=== PATIENT | female | born 1990 | race Hispanic/Latino ===

== ENCOUNTER 2019-03-10 21:03 | Emergency (ER) | payer MEDICAID ==
[2019-03-10] MEDS ORDERED: SODIUM CHLORIDE 0.9% 1000ML 2,000 ML IV ONE (22:01)
[2019-03-10] MEDS ORDERED: ONDANSETRON HCL 4 MG/2 ML VIAL ONE (22:01)
[2019-03-10 22:04] LABS: BASOPHILS % (AUTO) 0.2 % (0.0-5.0); EOSINOPHILS % (AUTO) 0.3 % (0.0-8.0); HEMATOCRIT 33.1 % (36-48); LYMPHOCYTES % (AUTO) 9.1 % (21.0-51.0); MEAN CORPUSCULAR HEMOGLOBIN 29.7 pg (27.0-33.0); MEAN CORPUSCULAR HGB CONC 34.4 g/dL (32.0-36.0); MEAN CORPUSCULAR VOLUME 86.4 fL (79-99); MONOCYTES % (AUTO) 3.3 % (3.0-13.0); NEUTROPHILS % (AUTO) 87.1 % (40.0-77.0); NUCLEATED RED BLOOD CELLS 0.1 % (0.0-0.19); PLATELET COUNT (AUTO) 238 K/uL (130-400); RED BLOOD CELL COUNT(AUTO) 3.83 MIL/uL (4.00-5.50); RED CELL DISTRIBUTION WIDTH 13.5 % (11.0-15.5); WHITE BLOOD COUNT (AUTO) 7.1 K/uL (4.8-10.8)
[2019-03-10 22:09] LABS: APPEARANCE,URINE Cloudy (CLEAR); BILIRUBIN,URINE Negative (NEGATIVE); COLOR,URINE Yellow (YELLOW); GLUCOSE, URINE (UA) Negative (NEGATIVE); KETONES,URINE Negative (NEGATIVE); LEUKOCYTE ESTERASE ,URINE Moderate (NEGATIVE); NITRATE,URINE Negative (NEGATIVE); OCCULT BLOOD,URINE Negative (NEGATIVE); PROTEIN,URINE Negative (NEGATIVE)
[2019-03-10 22:16] LABS: CREATININE 0.6 mg/dL (0.5-1.5); POTASSIUM 3.4 mmol/L (3.5-5.1)
[2019-03-10 22:33] LABS: BACTERIA,URINE Few /HPF (None Seen); RBC,URINE 0-1 /HPF (0-1); YEAST,URINE BUDDING Few /HPF (None Seen)
[2019-03-10 22:36] LABS: RAPID GROUP A STREP NEGATIVE (NEGATIVE)
[2019-03-10 22:39] LABS: ALBUMIN 2.9 g/dL (3.5-5.0); BILIRUBIN,TOTAL 0.9 mg/dL (0.2-1.0); TOTAL PROTEIN, SERUM 6.4 g/dL (6.0-8.3)
[2019-03-10] MEDS ORDERED: CEFTRIAXONE SODIUM 1 GM ONE (22:49)
== END 2019-03-10 23:47 | disposition home or self-care (01) ==
LOC: EDH 21:03
DX: O21.0 Mild hyperemesis gravidarum (principal); O23.41 Unspecified infection of urinary tract in pregnancy, first trimester; F31.9 Bipolar disorder, unspecified; F20.9 Schizophrenia, unspecified; F41.9 Anxiety disorder, unspecified; Z3A.13 13 weeks gestation of pregnancy; Z88.5 Allergy status to narcotic agent; Z88.8 Allergy status to other drugs, medicaments and biological substances
CPT/HCPCS: 36415; 80053; 81001; 82150; 83690; 84702; 85025; 87804 ×2; 87880; 96361; 96374; 96375; 99285; J0696; J2405; J7030

== ENCOUNTER 2019-08-18 09:05 | Emergency (ER) | payer MEDICAID ==
[~2019-08-18 09:05] MED LIST: PREN-196 PO
[2019-08-18] MEDS ORDERED: ONDANSETRON HCL 4 MG/2 ML VIAL ONE (09:37)
[2019-08-18] MEDS ORDERED: SODIUM CHLORIDE 0.9% 1000ML 1,000 ML IV ONE (09:37)
[2019-08-18] MEDS ORDERED: ACETAMINOPHEN EXTRA STRENGTH 500 MG TABLET ONE (09:38)
[2019-08-18 09:48] LABS: BASOPHILS % (AUTO) 0.1 % (0.0-5.0); EOSINOPHILS % (AUTO) 0.7 % (0.0-8.0); HEMATOCRIT 38.4 % (36-48); LYMPHOCYTES % (AUTO) 6.4 % (21.0-51.0); MEAN CORPUSCULAR HEMOGLOBIN 27.5 pg (27.0-33.0); MEAN CORPUSCULAR HGB CONC 32.6 g/dL (32.0-36.0); MEAN CORPUSCULAR VOLUME 84.4 fL (79-99); MONOCYTES % (AUTO) 3.1 % (3.0-13.0); NEUTROPHILS % (AUTO) 89.2 % (40.0-77.0); PLATELET COUNT (AUTO) 272 K/uL (130-400); RED BLOOD CELL COUNT(AUTO) 4.55 MIL/uL (4.00-5.50); RED CELL DISTRIBUTION WIDTH 14.4 % (11.0-15.5); WHITE BLOOD COUNT (AUTO) 11.2 K/uL (4.8-10.8)
[2019-08-18 09:59] LABS: CARBON DIOXIDE 24 mmol/L (21-32); CHLORIDE 101 mmol/L (101-111); CREATININE 0.8 mg/dL (0.5-1.5); GLOMERULAR FILTR. RATE CALC 91 mL/min (>60); GLUCOSE,RANDOM 87 mg/dL (70-105); INR 1.01 (0.85-1.15); PARTIAL THROMBOPLASTIN TIME 29.4 SEC (26.3-35.5); POTASSIUM 3.4 mmol/L (3.5-5.1); PROTHROMBIN TIME 10.6 SEC (9.6-11.6); SODIUM SERUM 137 mmol/L (136-145); UREA NITROGEN, BLOOD 9 mg/dL (7-18)
[2019-08-18 10:14] LABS: ALANINE AMINOTRANSFERASE 20 U/L (12-78); ALBUMIN 3.2 g/dL (3.5-5.0); ASPARTATE AMINOTRANSFERASE 17 U/L (10-37); BILIRUBIN,TOTAL 0.9 mg/dL (0.2-1.0); CREATINE KINASE, TOTAL 46 U/L (21-232); MYOGLOBIN 26 ng/mL (10-92); TOTAL PROTEIN, SERUM 6.9 g/dL (6.0-8.3); TROPONIN I < 0.04 ng/mL (0.00-0.06)
[2019-08-18 10:42] LABS: APPEARANCE,URINE Clear (CLEAR); BILIRUBIN,URINE Negative (NEGATIVE); COLOR,URINE Yellow (YELLOW); GLUCOSE, URINE (UA) Negative (NEGATIVE); KETONES,URINE Trace mg/dL (NEGATIVE); LEUKOCYTE ESTERASE ,URINE Moderate (NEGATIVE); NITRATE,URINE Negative (NEGATIVE); OCCULT BLOOD,URINE Large (NEGATIVE); PROTEIN,URINE Trace mg/dL (NEGATIVE)
[2019-08-18 10:56] LABS: BACTERIA,URINE Few /HPF (None Seen); SQUAMOUS EPITHELIAL CELL,UR 0-2 /HPF (0-2)
[2019-08-18 10:57] LABS: MUCUS,URINE Few LPF (None Seen)
[2019-08-18] MEDS ORDERED: CEFTRIAXONE SODIUM 1 GM ONE (11:13)
== END 2019-08-18 11:46 | disposition home or self-care (01) ==
LOC: EDH 09:05
DX: N13.6 Pyonephrosis (principal); R50.9 Fever, unspecified; F41.9 Anxiety disorder, unspecified; F31.9 Bipolar disorder, unspecified; F20.9 Schizophrenia, unspecified; Z87.891 Personal history of nicotine dependence; Z88.8 Allergy status to other drugs, medicaments and biological substances; Z88.6 Allergy status to analgesic agent; Z88.2 Allergy status to sulfonamides
CPT/HCPCS: 36415; 71045; 80053; 81001; 82550; 83605; 83874; 84145; 84484; 85025; 85610; 85730; 87040 ×2; 87088; 87804 ×2; 93005; 96374; 96375; 99285; J0696; J2405; J7030

== ENCOUNTER 2019-09-11 14:56 | Emergency (ER) | payer MEDICAID, OTHER | END 2019-09-11 15:11 | disposition left against medical advice (07) | LOC: EDH 14:56 | DX: Z53.21 Procedure and treatment not carried out due to patient leaving prior to being seen by health care provider (principal); Z88.8 Allergy status to other drugs, medicaments and biological substances; Z88.6 Allergy status to analgesic agent; Z88.2 Allergy status to sulfonamides; F41.9 Anxiety disorder, unspecified; F32.9 Major depressive disorder, single episode, unspecified; F20.9 Schizophrenia, unspecified ==

== ENCOUNTER 2020-07-31 04:51 | Emergency (ER) | payer OTHER ==
[2020-07-31 05:54] LABS: APPEARANCE,URINE Turbid (CLEAR); BILIRUBIN,URINE Negative (NEGATIVE); COLOR,URINE Yellow (YELLOW); GLUCOSE, URINE (UA) Negative (NEGATIVE); KETONES,URINE Negative (NEGATIVE); LEUKOCYTE ESTERASE ,URINE Large (NEGATIVE); NITRATE,URINE Negative (NEGATIVE); OCCULT BLOOD,URINE Large (NEGATIVE); PH,URINE 6.5 (5.0-8.0); PROTEIN,URINE POS 2+ mg/dL (NEGATIVE); UROBILINOGEN,URINE 0.2 mg/dL (0.2-1.0)
[2020-07-31 06:13] LABS: WBC,URINE >100 /HPF (0-1)
[2020-07-31 06:14] LABS: BACTERIA,URINE Few /HPF (None Seen); RBC,URINE 26-50 /HPF (0-1); SQUAMOUS EPITHELIAL CELL,UR Few /HPF (0-2)
[2020-07-31] MEDS ORDERED: SULFAMETHOX-TMP DS 800/160 TAB ONE (06:35)
[2020-07-31] MEDS ORDERED: PHENAZOPYRIDINE HCL 200 MG TABLET ONE (06:35)
[2020-07-31] MEDS ORDERED: DICYCLOMINE HCL 20 MG TAB ONE (06:36)
== END 2020-07-31 06:43 | disposition home or self-care (01) ==
LOC: EDH 04:51
DX: N39.0 Urinary tract infection, site not specified (principal); F31.9 Bipolar disorder, unspecified; F41.9 Anxiety disorder, unspecified; F20.9 Schizophrenia, unspecified; Z88.6 Allergy status to analgesic agent; Z88.8 Allergy status to other drugs, medicaments and biological substances; Z79.899 Other long term (current) drug therapy; Z72.0 Tobacco use
CPT/HCPCS: 81001; 81025; 87088

== ENCOUNTER 2020-11-01 11:28 | Emergency (ER) | payer SELFPAY ==
[2020-11-01] MEDS ORDERED: KETOROLAC 30MG VIAL (30MG/ML) ONE (12:44)
[2020-11-01] MEDS ORDERED: ORPHENADRINE CITRATE 30 MG/ML ML ONE (12:44)
== END 2020-11-01 13:08 | disposition home or self-care (01) ==
LOC: EDH 11:28
DX: S86.911A Strain of unspecified muscle(s) and tendon(s) at lower leg level, right leg, initial encounter (principal); F20.9 Schizophrenia, unspecified; F41.9 Anxiety disorder, unspecified; F31.9 Bipolar disorder, unspecified; Z88.6 Allergy status to analgesic agent; Z88.8 Allergy status to other drugs, medicaments and biological substances; Z72.0 Tobacco use; X58.XXXA Exposure to other specified factors, initial encounter; Y93.89 Activity, other specified; Y92.89 Other specified places as the place of occurrence of the external cause; Y99.8 Other external cause status
CPT/HCPCS: 96372 ×2; 99284; J1885; J2360

== ENCOUNTER 2020-12-12 23:30 | Emergency (ER) | payer OTHER ==
[2020-12-13] MEDS ORDERED: DiphenhydrAMINE HCL 50 MG/ML VIAL ONE (00:25)
== END 2020-12-13 00:49 | disposition home or self-care (01) ==
LOC: EDH 23:30
DX: F43.0 Acute stress reaction (principal); F41.9 Anxiety disorder, unspecified; F31.9 Bipolar disorder, unspecified; F20.9 Schizophrenia, unspecified; Z88.6 Allergy status to analgesic agent; Z88.8 Allergy status to other drugs, medicaments and biological substances; Z72.0 Tobacco use
CPT/HCPCS: 96372; 99283; J1200

== ENCOUNTER 2021-01-01 15:51 | Emergency (ER) | payer OTHER ==
[2021-01-01] MEDS ORDERED: ACETAMINOPHEN EXTRA STRENGTH 500 MG TABLET ONE (16:10)
== END 2021-01-01 17:23 ==
LOC: EDH 15:51
DX: Z02.89 Encounter for other administrative examinations (principal)
CPT/HCPCS: 81025

== ENCOUNTER 2021-04-23 08:34 | Emergency (ER) | payer MEDICAID ==
[~2021-04-23] VITALS: Ht 165.1 cm; Wt 81.6 kg
[2021-04-23 09:37] VITALS: BP 102/55
[2021-04-23 09:44] LABS: APPEARANCE,URINE Clear (CLEAR); BILIRUBIN,URINE Negative (NEGATIVE); COLOR,URINE Yellow (YELLOW); GLUCOSE, URINE (UA) Negative (NEGATIVE); KETONES,URINE 15 mg/dL (NEGATIVE); LEUKOCYTE ESTERASE ,URINE Trace (NEGATIVE); NITRATE,URINE Negative (NEGATIVE); OCCULT BLOOD,URINE Negative (NEGATIVE); PH,URINE 6.5 (5.0-8.0); PROTEIN,URINE Trace mg/dL (NEGATIVE)
[2021-04-23 10:28] LABS: BACTERIA,URINE Rare /HPF (None Seen); RBC,URINE 0-1 /HPF (0-1); SQUAMOUS EPITHELIAL CELL,UR Few /HPF (0-2); WBC,URINE 0-1 /HPF (0-1)
[2021-04-23] MEDS ORDERED: AZIT500T PO (10:36)
== END 2021-04-23 11:34 | disposition home or self-care (01) ==
LOC: EDH 08:34
DX: O98.512 Other viral diseases complicating pregnancy, second trimester (principal); U07.1 COVID-19; O99.512 Diseases of the respiratory system complicating pregnancy, second trimester; J06.9 Acute upper respiratory infection, unspecified; Z88.5 Allergy status to narcotic agent; Z3A.26 26 weeks gestation of pregnancy
CPT/HCPCS: 81001; 87635; 87804 ×2; 87880; 99283; C9803

== ENCOUNTER 2021-04-29 12:57 | Emergency (ER) | payer MEDICAID ==
[~2021-04-29] VITALS: Ht 165.1 cm; Wt 81.6 kg
[~2021-04-29 12:57] MED LIST changes: +AZIT500T PO
[2021-04-29 13:19] LABS: BASOPHILS % (AUTO) 0.2 % (0.0-5.0); EOSINOPHILS % (AUTO) 0.2 % (0.0-8.0); HEMATOCRIT 32.5 % (36-48); LYMPHOCYTES % (AUTO) 8.5 % (21.0-51.0); MEAN CORPUSCULAR HEMOGLOBIN 28.2 pg (27.0-33.0); MEAN CORPUSCULAR HGB CONC 32.9 g/dL (32.0-36.0); MEAN CORPUSCULAR VOLUME 85.5 fL (79-99); MONOCYTES % (AUTO) 3.9 % (3.0-13.0); NEUTROPHILS % (AUTO) 83.7 % (40.0-77.0); PLATELET COUNT (AUTO) 338 K/uL (130-400); RED CELL DISTRIBUTION WIDTH 14.6 % (11.0-15.5); WHITE BLOOD COUNT (AUTO) 8.9 K/uL (4.8-10.8)
[2021-04-29 13:30] LABS: CREATININE 0.8 mg/dL (0.5-1.5); POTASSIUM 3.5 mmol/L (3.5-5.1)
[2021-04-29 13:34] LABS: ALBUMIN 2.4 g/dL (3.5-5.0); BILIRUBIN,TOTAL 0.4 mg/dL (0.2-1.0); TOTAL PROTEIN, SERUM 6.8 g/dL (6.0-8.3)
[2021-04-29 14:04] LABS: APPEARANCE,URINE Clear (CLEAR); BILIRUBIN,URINE Negative (NEGATIVE); COLOR,URINE Yellow (YELLOW); GLUCOSE, URINE (UA) Negative (NEGATIVE); KETONES,URINE 15 mg/dL (NEGATIVE); LEUKOCYTE ESTERASE ,URINE Negative (NEGATIVE); NITRATE,URINE Negative (NEGATIVE); OCCULT BLOOD,URINE Negative (NEGATIVE); PH,URINE 6.5 (5.0-8.0); PROTEIN,URINE Negative (NEGATIVE)
[2021-04-29 14:16] LABS: BACTERIA,URINE None Seen /HPF (None Seen); RBC,URINE 0-1 /HPF (0-1); WBC,URINE 0-1 /HPF (0-1)
[2021-04-29 14:17] LABS: SQUAMOUS EPITHELIAL CELL,UR Few /HPF (0-2)
[2021-04-29] MEDS ORDERED: ACETAMINOPHEN 325 MG TAB PO ONE (14:30)
[2021-04-29] MEDS ORDERED: 0.9% NACL 250ML IVPB ONE (14:30)
[2021-04-29] MEDS ORDERED: CEFTRIAXONE 1G VIAL IVP ONE (14:30)
[2021-04-29] MEDS ORDERED: AZITHROMYCIN 500MG VIAL IVPB ONE (14:30)
[2021-04-29 17:17] LABS: CRP QUANTITATIVE 94.4 mg/L (0.00-9.0)
[2021-04-29 17:29] VITALS: BP 116/74
[2021-04-29] MEDS ORDERED: ACETAMINOPHEN 500 MG TABLET PO ONE (18:00)
[2021-04-29] MEDS ORDERED: 0.9%NACL 100ML 100 ML ONE (18:22)
[2021-04-29] MEDS ORDERED: CEFTRIAXONE 1G VIAL ONE (18:22)
[2021-04-29] MEDS ORDERED: AZITHROMYCIN 500MG+NS 250ML 250 ML IV ONE (18:29)
[2021-04-29 19:30] VITALS: BP 118/72
[2021-04-29 23:03] VITALS: BP 101/56
[2021-04-30 01:16] VITALS: BP 106/55
== END 2021-04-30 03:24 | disposition home or self-care (01) ==
LOC: EDH 12:57
DX: O98.512 Other viral diseases complicating pregnancy, second trimester (principal); U07.1 COVID-19; O99.512 Diseases of the respiratory system complicating pregnancy, second trimester; J12.82 Pneumonia due to coronavirus disease 2019; R09.02 Hypoxemia; F17.200 Nicotine dependence, unspecified, uncomplicated; Z3A.25 25 weeks gestation of pregnancy; Z88.5 Allergy status to narcotic agent
CPT/HCPCS: 36415; 71045; 80053; 81001; 81025; 82728; 83605; 83615; 84145; 84702; 85025; 85378; 86140; 87635; 93005; 93970; 94760 ×2; 96365; 96375; 99291; C9803; J0456; J0696

== ENCOUNTER 2021-07-09 01:07 | Emergency (ER) | payer MEDICAID ==
[~2021-07-09] VITALS: Ht 162.6 cm; Wt 70.3 kg
[2021-07-09 01:42] LABS: HEMATOCRIT 27.8 % (36-48); MEAN CORPUSCULAR HEMOGLOBIN 27.4 pg (27.0-33.0); MEAN CORPUSCULAR HGB CONC 31.7 g/dL (32.0-36.0); MEAN CORPUSCULAR VOLUME 86.6 fL (79-99); PLATELET COUNT (AUTO) 291 K/uL (130-400); RED BLOOD CELL COUNT(AUTO) 3.21 MIL/uL (4.00-5.50); RED CELL DISTRIBUTION WIDTH 15.9 % (11.0-15.5); WHITE BLOOD COUNT (AUTO) 6.5 K/uL (4.8-10.8)
[2021-07-09 01:46] LABS: APPEARANCE,URINE Clear (CLEAR); BILIRUBIN,URINE Negative (NEGATIVE); COLOR,URINE Yellow (YELLOW); GLUCOSE, URINE (UA) Negative (NEGATIVE); KETONES,URINE Negative (NEGATIVE); LEUKOCYTE ESTERASE ,URINE Trace (NEGATIVE); NITRATE,URINE Negative (NEGATIVE); OCCULT BLOOD,URINE Negative (NEGATIVE); PROTEIN,URINE Negative (NEGATIVE)
[2021-07-09 01:53] LABS: AMPHET/METH SCREEN,URINE NEGATIVE (NEGATIVE); BARBITURATE SCREEN, URINE NEGATIVE (NEGATIVE); BENZODIAZEPINES SCREEN,URINE NEGATIVE (NEGATIVE); CANNABINOID SCREEN,URINE POSITIVE (NEGATIVE); COCAINE SCREEN,URINE POSITIVE (NEGATIVE); OPIATE SCREEN,URINE NEGATIVE (NEGATIVE); PHENCYCLIDINE SCREEN,URINE NEGATIVE (NEGATIVE)
[2021-07-09 01:54] LABS: BACTERIA,URINE None Seen /HPF (None Seen); RBC,URINE None Seen /HPF (0-1); WBC,URINE 0-1 /HPF (0-1)
[2021-07-09 02:23] LABS: LYMPHOCYTES % (MANUAL) 22 % (22-44); MAN.DIFF COMMENT-IMPRESSION MANUAL DIFFERENTIAL; SEGMENTED NEUTROPHILS % 78 % (40-70)
[2021-07-09 02:24] LABS: PLATELET MORPHOLOGY COMMENT ADEQUATE
[2021-07-09 02:29] LABS: CARBON DIOXIDE 23 mmol/L (21-32); CHLORIDE 107 mmol/L (101-111); CREATININE 0.6 mg/dL (0.5-1.5); GLOMERULAR FILTR. RATE CALC 126 mL/min (>60); GLUCOSE,RANDOM 65 mg/dL (70-105); POTASSIUM 3.5 mmol/L (3.5-5.1); SODIUM SERUM 143 mmol/L (136-145); UREA NITROGEN, BLOOD 3 mg/dL (7-18)
[2021-07-09 02:51] LABS: ALANINE AMINOTRANSFERASE 34 U/L (12-78); ALBUMIN 2.9 g/dL (3.5-5.0); ALCOHOL, BLOOD 54 mg/dL (0-10); ASPARTATE AMINOTRANSFERASE 24 U/L (10-37); BILIRUBIN,TOTAL 0.6 mg/dL (0.2-1.0); HCG,QUANTITATIVE 25704 mIU/mL (0-5); TOTAL PROTEIN, SERUM 6.9 g/dL (6.0-8.3)
[2021-07-09 03:15] LABS: ACETAMINOPHEN < 1 mcg/mL (10-30); SALICYLATE < 2.8 mg/dL (2.8-20.0)
[2021-07-09] MEDS ORDERED: LORAZEPAM 1 MG TABLET ONE (04:10)
[2021-07-09] MEDS ORDERED: LORAZEPAM 1 MG TABLET PO ONE (04:30)
[2021-07-09 10:56] VITALS: BP 103/64
== END 2021-07-09 11:47 | disposition home or self-care (01) ==
LOC: EDH 01:07
DX: F29 Unspecified psychosis not due to a substance or known physiological condition (principal); F41.9 Anxiety disorder, unspecified; F32.9 Major depressive disorder, single episode, unspecified; Z88.8 Allergy status to other drugs, medicaments and biological substances; Z88.6 Allergy status to analgesic agent
CPT/HCPCS: 36415; 80053; 80305; 81001; 84702; 85025; 99285; G0481

== ENCOUNTER 2021-08-01 07:59 | Inpatient (IN) | payer MEDICAID ==
[~2021-08-01] VITALS: Ht 165.1 cm; Wt 72.6 kg
[2021-08-01] MEDS ORDERED: AMPICILLIN 2GM+NS 100ML 100 ML IV ONE (11:28)
[2021-08-01] MEDS ORDERED: AMPICILLIN 1GM+NS 50ML 50 ML IV SCH (11:30)
[2021-08-01] MEDS ORDERED: OXYTOCIN-LR 20 UNITS/1000 ML 1,000 ML IV SCH ×2 (11:30→13:00)
[2021-08-01] MEDS ORDERED: AMPICILLIN 2GM+NS 100ML 100 ML IV SCH (11:30)
[2021-08-01] MEDS ORDERED: LACTATED RINGERS 1000ML 1,000 ML IV PRN (11:30)
[2021-08-01 11:45] LABS: HEMATOCRIT 31.3 % (36-48); MEAN CORPUSCULAR HEMOGLOBIN 26.3 pg (27.0-33.0); MEAN CORPUSCULAR HGB CONC 31.3 g/dL (32.0-36.0); MEAN CORPUSCULAR VOLUME 84.1 fL (79-99); RED BLOOD CELL COUNT(AUTO) 3.72 MIL/uL (4.00-5.50); RED CELL DISTRIBUTION WIDTH 15.7 % (11.0-15.5); WHITE BLOOD COUNT (AUTO) 5.5 K/uL (4.8-10.8)
[2021-08-01 12:03] LABS: APPEARANCE,URINE Clear (CLEAR); BILIRUBIN,URINE Negative (NEGATIVE); COLOR,URINE Yellow (YELLOW); GLUCOSE, URINE (UA) Negative (NEGATIVE); KETONES,URINE Negative (NEGATIVE); LEUKOCYTE ESTERASE ,URINE Negative (NEGATIVE); NITRATE,URINE Negative (NEGATIVE); OCCULT BLOOD,URINE Negative (NEGATIVE); PROTEIN,URINE Negative (NEGATIVE); UROBILINOGEN,URINE 0.2 mg/dL (0.2-1.0)
[2021-08-01 12:10] LABS: AMPHET/METH SCREEN,URINE NEGATIVE (NEGATIVE); BARBITURATE SCREEN, URINE NEGATIVE (NEGATIVE); BENZODIAZEPINES SCREEN,URINE NEGATIVE (NEGATIVE); CANNABINOID SCREEN,URINE NEGATIVE (NEGATIVE); COCAINE SCREEN,URINE POSITIVE (NEGATIVE); OPIATE SCREEN,URINE NEGATIVE (NEGATIVE); PHENCYCLIDINE SCREEN,URINE NEGATIVE (NEGATIVE)
[2021-08-01] MEDS ORDERED: LACTATED RINGERS 500 ML 500 ML IV PRN (14:00)
[2021-08-01] MEDS ORDERED: ROPIVACAINE 0.2% 100ML VIAL 100 ML EP SCH (14:00)
[2021-08-01] MEDS ORDERED: IBUPROFEN 600 MG TABLET PO PRN (14:00)
[2021-08-01] MEDS ORDERED: WITCH HAZEL 1 PAD TP PRN ×2 (14:00→15:30)
[2021-08-01] MEDS ORDERED: DIPH,PERTUSS(ACELL),TET VAC/PF 0.5 ML VIAL IM PRN ×2 (14:00→15:30)
[2021-08-01] MEDS ORDERED: MEASLES/MUMPS/RUBELLA VACCINE, LIVE 0.5 ML/VIAL SQ PRN ×2 (14:00→15:30)
[2021-08-01] MEDS ORDERED: NALOXONE HCL 0.4 MG/1 ML ML IV PRN (14:00)
[2021-08-01] MEDS ORDERED: EPHEDRINE SULFATE 50 MG/ML AMPULE IVP PRN (14:00)
[2021-08-01] MEDS ORDERED: BENZOCAINE/LANOLIN/ALOE VERA 60 ML AEROSOL TP PRN ×2 (14:00→15:30)
[2021-08-01] MEDS ORDERED: ACETAMINOPHEN 325 MG TAB PO PRN (14:00)
[2021-08-01] MEDS ORDERED: LANOLIN 30GM OINTMENT TP PRN ×2 (14:00→15:30)
[2021-08-01] MEDS: IBUPROFEN 600 MG TABLET PO PRN (16:33)
[2021-08-01 16:54] VITALS: BP 134/78
[2021-08-01] MEDS ORDERED: DIPH50 PO (17:17)
[2021-08-01] MEDS ORDERED: DIPHENHYDRAMINE HCL 25 MG CAPSULE PO PRN (17:30)
[2021-08-01] MEDS: ACETAMINOPHEN 325 MG TAB PO PRN ×2 (17:36→23:27)
[2021-08-01 19:20] VITALS: BP 121/85
[2021-08-01] MEDS: DOCUSATE SODIUM 100 MG CAP PO SCH (19:53)
[2021-08-01] MEDS ORDERED: DOCUSATE SODIUM 100 MG CAP PO SCH (21:00)
[2021-08-01 23:15] VITALS: BP 112/73
[2021-08-02 03:13] VITALS: BP 108/67
[2021-08-02] MEDS: IBUPROFEN 600 MG TABLET PO PRN (06:30)
[2021-08-02 06:34] LABS: HEMATOCRIT 27.2 % (36-48); MEAN CORPUSCULAR HEMOGLOBIN 26.1 pg (27.0-33.0); MEAN CORPUSCULAR HGB CONC 31.6 g/dL (32.0-36.0); MEAN CORPUSCULAR VOLUME 82.7 fL (79-99); RED BLOOD CELL COUNT(AUTO) 3.29 MIL/uL (4.00-5.50); RED CELL DISTRIBUTION WIDTH 15.7 % (11.0-15.5)
[2021-08-02 07:12] VITALS: BP 118/76
[2021-08-02 08:15] LABS: HEPATITIS Bs ANTIGEN SCREEN P Negative (Negative)
[2021-08-02] MEDS: DOCUSATE SODIUM 100 MG CAP PO SCH (09:09)
[2021-08-02 09:53] LABS: RAPID PLASMA REAGIN NONREACTIVE (NONREACTIVE)
[2021-08-02 11:07] VITALS: BP 116/60
[2021-08-02] MEDS: ACETAMINOPHEN 325 MG TAB PO PRN (14:09)
== END 2021-08-02 17:35 | disposition home or self-care (01) | DRG 560 ==
LOC: EDH 07:59 → LDH 08:00 → INTOOBSV 08:08 → OBSVTOIN 08:08 → UNDOADMOB 08:08 → WSH 16:58
PROVIDERS: ADMIT Obstetrics & Gynecology; ATTEND Obstetrics & Gynecology
PROC: 10E0XZZ Delivery of Products of Conception, External Approach (ICD-10-PCS; principal; 2021-08-01)
PROC: 10907ZC Drainage of Amniotic Fluid, Therapeutic from Products of Conception, Via Natural or Artificial Opening (ICD-10-PCS; 2021-08-01)
PROC: 3E0234Z Introduction of Serum, Toxoid and Vaccine into Muscle, Percutaneous Approach (ICD-10-PCS; 2021-08-01)
PROC: 3E0134Z Introduction of Serum, Toxoid and Vaccine into Subcutaneous Tissue, Percutaneous Approach (ICD-10-PCS; 2021-08-01)
PROC: 3E0R3BZ Introduction of Anesthetic Agent into Spinal Canal, Percutaneous Approach (ICD-10-PCS; 2021-08-01)
PROC: 00HU33Z Insertion of Infusion Device into Spinal Canal, Percutaneous Approach (ICD-10-PCS; 2021-08-01)
DX: O60.14X0 Preterm labor third trimester with preterm delivery third trimester, not applicable or unspecified (principal); O99.324 Drug use complicating childbirth; F14.90 Cocaine use, unspecified, uncomplicated; Z37.0 Single live birth; Z23 Encounter for immunization; Z3A.37 37 weeks gestation of pregnancy; Z88.8 Allergy status to other drugs, medicaments and biological substances; Z88.5 Allergy status to narcotic agent
CPT/HCPCS: 36415; 76805; 80305; 81003; 85027; 86592; 86701; 86850; 86900; 86901; 87070; 87076; 87077; 87186; 87340; 87390; 88307; 90707; 90715; A4351; G0378; J0290; J2590; Q0163

== ENCOUNTER 2021-08-10 20:35 | Emergency (ER) | payer MEDICAID ==
[~2021-08-10 20:35] MED LIST changes: -ACETAMINOPHEN 325 MG TAB ONE; -ACETAMINOPHEN 325 MG TAB PO ONE
== END 2021-08-10 22:01 | disposition left against medical advice (07) ==
LOC: EDH 20:35
DX: F41.9 Anxiety disorder, unspecified (principal); Z53.21 Procedure and treatment not carried out due to patient leaving prior to being seen by health care provider

== ENCOUNTER → 2021-08-10 | Emergency (ER) | payer MEDICAID ==
[~2021-08-10] VITALS: Ht 165.1 cm; Wt 72.6 kg
[~2021-08-10] MED LIST changes: +ACETAMINOPHEN 325 MG TAB ONE; +ACETAMINOPHEN 325 MG TAB PO ONE; -AZIT500T PO; +DIPH50 PO
[2021-08-11 03:23] LABS: BASOPHILS % (AUTO) 0.3 % (0.0-5.0); HEMATOCRIT 36.2 % (36-48); LYMPHOCYTES % (AUTO) 29.9 % (21.0-51.0); MEAN CORPUSCULAR HGB CONC 31.2 g/dL (32.0-36.0); MEAN CORPUSCULAR VOLUME 83.2 fL (79-99); MONOCYTES % (AUTO) 8.9 % (3.0-13.0); NEUTROPHILS % (AUTO) 59.2 % (40.0-77.0); PLATELET COUNT (AUTO) 406 K/uL (130-400); RED BLOOD CELL COUNT(AUTO) 4.35 MIL/uL (4.00-5.50); RED CELL DISTRIBUTION WIDTH 15.9 % (11.0-15.5)
[2021-08-11 03:31] LABS: CARBON DIOXIDE 28 mmol/L (21-32); CHLORIDE 102 mmol/L (101-111); CREATININE 0.7 mg/dL (0.5-1.5); GLOMERULAR FILTR. RATE CALC 105 mL/min (>60); GLUCOSE,RANDOM 87 mg/dL (70-105); POTASSIUM 3.4 mmol/L (3.5-5.1); SODIUM SERUM 140 mmol/L (136-145); UREA NITROGEN, BLOOD 8 mg/dL (7-18)
[2021-08-11 03:36] LABS: ALANINE AMINOTRANSFERASE 27 U/L (12-78); ALBUMIN 3.8 g/dL (3.5-5.0); ASPARTATE AMINOTRANSFERASE 18 U/L (10-37); BILIRUBIN,TOTAL 0.7 mg/dL (0.2-1.0); TOTAL PROTEIN, SERUM 8.3 g/dL (6.0-8.3)
[2021-08-11 03:40] LABS: ACETAMINOPHEN < 1 mcg/mL (10-30); ALCOHOL, BLOOD < 3 mg/dL (0-10); SALICYLATE < 2.8 mg/dL (2.8-20.0)
[2021-08-11 05:08] LABS: HCG,QUAL RESULT POSITIVE (NEGATIVE)
[2021-08-11 05:12] LABS: AMPHET/METH SCREEN,URINE NEGATIVE (NEGATIVE); BARBITURATE SCREEN, URINE NEGATIVE (NEGATIVE); BENZODIAZEPINES SCREEN,URINE NEGATIVE (NEGATIVE); CANNABINOID SCREEN,URINE POSITIVE (NEGATIVE); COCAINE SCREEN,URINE POSITIVE (NEGATIVE); OPIATE SCREEN,URINE NEGATIVE (NEGATIVE); PHENCYCLIDINE SCREEN,URINE NEGATIVE (NEGATIVE)
[2021-08-11 11:20] VITALS: BP 118/73
== END ==
LOC: EDH 22:11
DX: O99.345 Other mental disorders complicating the puerperium (principal); R45.851 Suicidal ideations; R45.850 Homicidal ideations; F14.10 Cocaine abuse, uncomplicated; F41.9 Anxiety disorder, unspecified; F17.200 Nicotine dependence, unspecified, uncomplicated; Z79.899 Other long term (current) drug therapy; Z88.6 Allergy status to analgesic agent
CPT/HCPCS: 36415; 80053; 80305; 81025; 85025; 99285; G0481

== ENCOUNTER 2022-11-03 09:03 | Emergency (ER) | payer MEDICAID, OTHER ==
[~2022-11-03] VITALS: Ht 157.5 cm; Wt 52.2 kg
[2022-11-03] MEDS ORDERED: DiphenhydrAMINE HCL 50 MG/ML VIAL IM ONE ×2 (09:30→23:00)
[2022-11-03] MEDS ORDERED: LORAZEPAM 2 MG/ML 1 ML VIAL IM ONE ×2 (09:30→23:00)
[2022-11-03 11:02] LABS: BASOPHILS % (AUTO) 0.4 % (0.0-5.0); HEMATOCRIT 37.7 % (36-48); MEAN CORPUSCULAR HEMOGLOBIN 29.4 pg (27.0-33.0); MEAN CORPUSCULAR HGB CONC 33.4 g/dL (32.0-36.0); MEAN CORPUSCULAR VOLUME 88.1 fL (79-99); MONOCYTES % (AUTO) 8.4 % (3.0-13.0); NEUTROPHILS % (AUTO) 82.7 % (40.0-77.0); PLATELET COUNT (AUTO) 359 K/uL (130-400); RED BLOOD CELL COUNT(AUTO) 4.28 MIL/uL (4.00-5.50); RED CELL DISTRIBUTION WIDTH 14.2 % (11.0-15.5); WHITE BLOOD COUNT (AUTO) 13.1 K/uL (4.8-10.8)
[2022-11-03 11:10] LABS: CARBON DIOXIDE 23 mmol/L (21-32); CHLORIDE 101 mmol/L (101-111); CREATININE 1.2 mg/dL (0.5-1.5); GLOMERULAR FILTR. RATE CALC 56 mL/min (>60); GLUCOSE,RANDOM 134 mg/dL (70-105); POTASSIUM 3.4 mmol/L (3.5-5.1); SODIUM SERUM 140 mmol/L (136-145); UREA NITROGEN, BLOOD 13 mg/dL (7-18)
[2022-11-03 11:14] LABS: ALANINE AMINOTRANSFERASE 29 U/L (12-78); ALBUMIN 4.7 g/dL (3.5-5.0); ASPARTATE AMINOTRANSFERASE 23 U/L (10-37); CREATINE KINASE, TOTAL 215 U/L (21-232); TOTAL PROTEIN, SERUM 8.4 g/dL (6.0-8.3)
[2022-11-03 11:19] LABS: ACETAMINOPHEN < 1 mcg/mL (10-30); ALCOHOL, BLOOD < 3 mg/dL (0-10); SALICYLATE < 2.8 mg/dL (2.8-20.0)
[2022-11-03 11:22] LABS: APPEARANCE,URINE CLOUDY (CLEAR); BILIRUBIN,URINE NEGATIVE (NEGATIVE); COLOR,URINE YELLOW (YELLOW); GLUCOSE, URINE (UA) NEGATIVE (NEGATIVE); KETONES,URINE 10 mg/dL (NEGATIVE); LEUKOCYTE ESTERASE ,URINE 250 Leu/uL (NEGATIVE); NITRATE,URINE NEGATIVE (NEGATIVE); OCCULT BLOOD,URINE NEGATIVE (NEGATIVE); PROTEIN,URINE 30 mg/dL (NEGATIVE); UROBILINOGEN,URINE 0.2 mg/dL (0.2-1.0)
[2022-11-03 11:29] LABS: BACTERIA,URINE FEW /HPF (None Seen); MUCUS,URINE FEW LPF (None Seen); SQUAMOUS EPITHELIAL CELL,UR FEW /HPF (0-2)
[2022-11-03 11:33] LABS: HCG,QUALITATIVE URINE NEGATIVE (NEGATIVE)
[2022-11-03 12:35] LABS: AMPHET/METH SCREEN,URINE NEGATIVE (NEGATIVE); BARBITURATE SCREEN, URINE NEGATIVE (NEGATIVE); BENZODIAZEPINES SCREEN,URINE NEGATIVE (NEGATIVE); CANNABINOID SCREEN,URINE NEGATIVE (NEGATIVE); COCAINE SCREEN,URINE POSITIVE (NEGATIVE); OPIATE SCREEN,URINE NEGATIVE (NEGATIVE); PHENCYCLIDINE SCREEN,URINE NEGATIVE (NEGATIVE)
[2022-11-03] MEDS ORDERED: HALOPERIDOL INJ 5 MG/ML VIAL IM SCH (23:00)
[2022-11-03] MEDS ORDERED: ZIPRASIDONE MESYLATE 20 MG/VIAL IM SCH (23:00)
[2022-11-04] MEDS ORDERED: LORAZEPAM 2 MG TABLET PO ONE (12:30)
[2022-11-04] MEDS ORDERED: LORAZEPAM 1 MG TABLET PO ONE (13:00)
[2022-11-04 18:50] VITALS: BP 108/68
== END 2022-11-04 19:00 | disposition home or self-care (01) ==
LOC: EDH 09:03
DX: F20.9 Schizophrenia, unspecified (principal); R45.851 Suicidal ideations; F41.9 Anxiety disorder, unspecified; F17.200 Nicotine dependence, unspecified, uncomplicated; Z88.5 Allergy status to narcotic agent; Z88.8 Allergy status to other drugs, medicaments and biological substances
CPT/HCPCS: 99285; 82550; 80053; 80305; 85025; 87088; 81025; 36415; 96372 ×5; 81001; G0481; J1200 ×2; J1630; J2060 ×2; J3486

== ENCOUNTER 2022-11-14 02:38 | Emergency (ER) | payer OTHER ==
[~2022-11-14] VITALS: Ht 162.6 cm; Wt 61.7 kg
[2022-11-14 02:40] VITALS: BP 125/74
[2022-11-14 03:05] LABS: APPEARANCE,URINE CLEAR (CLEAR); BILIRUBIN,URINE NEGATIVE (NEGATIVE); COLOR,URINE COLORLESS (YELLOW); GLUCOSE, URINE (UA) NEGATIVE (NEGATIVE); KETONES,URINE NEGATIVE (NEGATIVE); LEUKOCYTE ESTERASE ,URINE 500 Leu/uL (NEGATIVE); NITRATE,URINE NEGATIVE (NEGATIVE); OCCULT BLOOD,URINE NEGATIVE (NEGATIVE); PROTEIN,URINE NEGATIVE (NEGATIVE); UROBILINOGEN,URINE 0.2 mg/dL (0.2-1.0)
[2022-11-14 03:09] LABS: HCG,QUALITATIVE URINE NEGATIVE (NEGATIVE)
[2022-11-14 03:10] LABS: SQUAMOUS EPITHELIAL CELL,UR RARE /HPF (0-2)
[2022-11-14] MEDS ORDERED: CEFU500T67 PO (03:15)
[2022-11-14 03:18] LABS: AMPHET/METH SCREEN,URINE NEGATIVE (NEGATIVE); BARBITURATE SCREEN, URINE NEGATIVE (NEGATIVE); BENZODIAZEPINES SCREEN,URINE NEGATIVE (NEGATIVE); CANNABINOID SCREEN,URINE NEGATIVE (NEGATIVE); COCAINE SCREEN,URINE POSITIVE (NEGATIVE); OPIATE SCREEN,URINE NEGATIVE (NEGATIVE); PHENCYCLIDINE SCREEN,URINE NEGATIVE (NEGATIVE)
[2022-11-14] MEDS ORDERED: CEFTRIAXONE 1G VIAL IM ONE (03:30)
[2022-11-14] MEDS ORDERED: AZITHROMYCIN 250 MG TABLET PO ONE (03:30)
== END 2022-11-14 03:32 | disposition home or self-care (01) ==
LOC: EDH 02:38
DX: F20.9 Schizophrenia, unspecified (principal); N39.0 Urinary tract infection, site not specified; F17.200 Nicotine dependence, unspecified, uncomplicated; Z88.5 Allergy status to narcotic agent; Z88.8 Allergy status to other drugs, medicaments and biological substances; Z79.899 Other long term (current) drug therapy
CPT/HCPCS: 99283; 80305; 87088; 87797; 87486; 81025; 96372; 81001; J0696

== ENCOUNTER 2023-12-16 08:55 | Emergency (ER) | payer MEDICAID ==
[~2023-12-16] VITALS: Ht 165.1 cm; Wt 77.1 kg
[~2023-12-16 08:55] MED LIST changes: +CEFU500T67 PO
[2023-12-16] MEDS: HYDROXYZINE 25 MG TABLET PO ONE (09:30)
[2023-12-16 09:38] LABS: APPEARANCE,URINE CLEAR (CLEAR); BILIRUBIN,URINE NEGATIVE (NEGATIVE); COLOR,URINE LIGHT-YELLOW (YELLOW); GLUCOSE, URINE (UA) NEGATIVE (NEGATIVE); HCG,QUALITATIVE URINE NEGATIVE (NEGATIVE); KETONES,URINE NEGATIVE (NEGATIVE); LEUKOCYTE ESTERASE ,URINE 25 Leu/uL (NEGATIVE); NITRATE,URINE NEGATIVE (NEGATIVE); OCCULT BLOOD,URINE LARGE (NEGATIVE); PROTEIN,URINE 10 mg/dL (NEGATIVE); UROBILINOGEN,URINE 0.2 mg/dL (0.2-1.0)
[2023-12-16 09:40] LABS: ADD UA MICROSCOPIC YES
[2023-12-16 09:42] LABS: BACTERIA,URINE RARE /HPF (None Seen); MUCUS,URINE RARE LPF (None Seen); RBC,URINE 26-50 /HPF (0-1); SQUAMOUS EPITHELIAL CELL,UR FEW /HPF (0-2)
[2023-12-16 09:47] LABS: BASOPHILS # (AUTO) 0.03 K/uL (0.00-0.20); BASOPHILS % (AUTO) 0.4 % (0.0-5.0); EOSINOPHILS # (AUTO) 0.01 K/uL (0.00-0.70); EOSINOPHILS % (AUTO) 0.1 % (0.0-8.0); HEMATOCRIT 41.1 % (36-48); IMMATURE GRANULOCYTE ABSOLUTE 0.03 K/uL (0-1); LYMPHOCYTES # (AUTO) 1.1 K/uL (1.0-4.8); MEAN CORPUSCULAR HEMOGLOBIN 28.9 pg (27.0-33.0); MEAN CORPUSCULAR HGB CONC 33.1 g/dL (32.0-36.0); MEAN CORPUSCULAR VOLUME 87.3 fL (79-99); MONOCYTES # (AUTO) 0.5 K/uL (0.1-1.0); NEUTROPHILS # (AUTO) 6.1 K/uL (1.8-7.7); NEUTROPHILS % (AUTO) 79.1 % (40.0-77.0); PLATELET COUNT (AUTO) 287 K/uL (130-400); RED BLOOD CELL COUNT(AUTO) 4.71 MIL/uL (4.00-5.50); RED CELL DISTRIBUTION WIDTH 16.5 % (11.0-15.5); WHITE BLOOD COUNT (AUTO) 7.7 K/uL (4.8-10.8)
[2023-12-16 09:52] LABS: AMPHET/METH SCREEN,URINE NEGATIVE (NEGATIVE); BARBITURATE SCREEN, URINE NEGATIVE (NEGATIVE); BENZODIAZEPINES SCREEN,URINE NEGATIVE (NEGATIVE); CANNABINOID SCREEN,URINE NEGATIVE (NEGATIVE); COCAINE SCREEN,URINE POSITIVE (NEGATIVE); OPIATE SCREEN,URINE NEGATIVE (NEGATIVE); PHENCYCLIDINE SCREEN,URINE NEGATIVE (NEGATIVE)
[2023-12-16 09:56] LABS: CARBON DIOXIDE 29 mmol/L (21-32); CHLORIDE 101 mmol/L (101-111); CREATININE 0.6 mg/dL (0.5-1.0); GLOMERULAR FILTR. RATE CALC 122 mL/min (>90); GLUCOSE,RANDOM 85 mg/dL (70-105); POTASSIUM 3.7 mmol/L (3.5-5.1); SODIUM SERUM 140 mmol/L (136-145); UREA NITROGEN, BLOOD 4 mg/dL (7-18)
[2023-12-16 10:00] LABS: ALANINE AMINOTRANSFERASE 62 U/L (12-78); ALCOHOL, BLOOD 6 mg/dL (0-10); ASPARTATE AMINOTRANSFERASE 46 U/L (10-37); BILIRUBIN,TOTAL 1.2 mg/dL (0.2-1.0)
[2023-12-16 10:07] LABS: ACETAMINOPHEN < 1 mcg/mL (10-30); SALICYLATE < 2.8 mg/dL (2.8-20.0)
[2023-12-16] MEDS: NITROFURANTOIN MONOHYD/M-CRYST 100 MG CAPSULE PO ONE (11:02)
[2023-12-16 15:18] VITALS: BP 118/72; PULSE 64; RESP 18; O2SAT 99
== END 2023-12-16 15:23 | disposition home or self-care (01) ==
LOC: EDH 08:55
DX: F41.9 Anxiety disorder, unspecified (principal); R44.0 Auditory hallucinations; F17.200 Nicotine dependence, unspecified, uncomplicated; Z79.899 Other long term (current) drug therapy; Z98.890 Other specified postprocedural states; Z88.5 Allergy status to narcotic agent; Z88.8 Allergy status to other drugs, medicaments and biological substances
CPT/HCPCS: 99283; 80053; 80305; 85025; 81025; 36415; 81001; G0481